=== PATIENT | female | born 1955 | race Caucasian/White ===

== ENCOUNTER → 2024-01-01 07:59 | Outpatient (REF) | payer OTHER, SELFPAY | LOC: WDC 07:59 | PROVIDERS: ATTENDING PHYSICIAN Nurse Practitioner | DX: Z12.31 Encounter for screening mammogram for malignant neoplasm of breast (principal) | CPT/HCPCS: 77063; 77067 ==

== ENCOUNTER → 2024-01-30 08:08 | Outpatient (REF) | payer OTHER, SELFPAY | LOC: HWRAD 08:08 | PROVIDERS: ATTENDING PHYSICIAN Nurse Practitioner | DX: R10.11 Right upper quadrant pain (principal) | CPT/HCPCS: 76700 ==

== ENCOUNTER → 2024-03-01 08:27 | Outpatient (REF) | payer OTHER, SELFPAY | LOC: HWRAD 08:27 | PROVIDERS: ATTENDING PHYSICIAN Nurse Practitioner | DX: M81.0 Age-related osteoporosis without current pathological fracture (principal) | CPT/HCPCS: 77080 ==

== ENCOUNTER → 2024-09-16 14:14 | Outpatient (REF) | payer OTHER, SELFPAY | LOC: RAD 14:14 | PROVIDERS: ATTENDING PHYSICIAN Nurse Practitioner Adult Health | DX: K11.1 Hypertrophy of salivary gland (principal); Z85.810 Personal history of malignant neoplasm of tongue; R59.0 Localized enlarged lymph nodes | CPT/HCPCS: 70491; Q9967 ==

== ENCOUNTER → 2025-01-04 08:26 | Outpatient (REF) | payer OTHER, SELFPAY | LOC: WDC 08:26 | PROVIDERS: ATTENDING PHYSICIAN Internal Medicine | DX: Z12.31 Encounter for screening mammogram for malignant neoplasm of breast (principal) | CPT/HCPCS: 77063; 77067 ==